=== PATIENT | female | born 1960 | race Caucasian/White ===

== ENCOUNTER → 2020-11-16 15:22 | Outpatient (BNVA) | payer BC, SELFPAY | PROVIDERS: Family Provider Family Medicine; Visit Provider Obstetrics & Gynecology | DX: N95.1 Menopausal and female climacteric states (principal); R93.89 Abnormal findings on diagnostic imaging of other specified body structures | CPT/HCPCS: 76830 ==

== ENCOUNTER → 2020-11-23 09:50 | Outpatient (BNVA) | payer BC, SELFPAY | PROVIDERS: Family Provider Family Medicine; Visit Provider Obstetrics & Gynecology | DX: Z12.4 Encounter for screening for malignant neoplasm of cervix (principal) | CPT/HCPCS: 88175 ==

== ENCOUNTER 2020-12-28 11:19 | Outpatient (CLI) | payer BC, SELFPAY ==
--- NOTE | 2020-12-28 10:50 | MM_ITS ---
WS: [id number] BILATERAL DIGITAL SCREENING MAMMOGRAPHY WITH CAD CLINICAL INFORMATION: SCREENING HISTORY: Screening mammogram. No current complaints. COMPARISON: TECHNIQUE: Bilateral CC and MLO views. FINDINGS: Bilateral breast implants. Implants are mammographically intact with capsular calcification s. The breasts are composed of heterogeneous fibroglandular density tissue, which can limit the detectio n of small underlying mass lesions. Nodular breast tissue upper outer right breast unchanged. No susp icious mass, asymmetry, calcifications, or architectural distortion. No evidence of malignancy. MM/[place] [id number] IMPRESSION: BI-RADS: 2-Benign FOLLOW UP: 1 Year Follow-up Recommend return to annual screening mammography.
== END 2020-12-28 11:20 | disposition home or self-care (01) ==
LOC: RADSHAW 11:21
PROVIDERS: PCP Nurse Practitioner Family; Visit Provider Obstetrics & Gynecology
DX: Z12.31 Encounter for screening mammogram for malignant neoplasm of breast (principal)
CPT/HCPCS: 77067

== ENCOUNTER → 2021-05-10 09:03 | Outpatient (BNVA) | payer BC, SELFPAY | PROVIDERS: PCP Nurse Practitioner Family; Visit Provider Internal Medicine | DX: E03.9 Hypothyroidism, unspecified (principal); Z86.39 Personal history of other endocrine, nutritional and metabolic disease; Z87.891 Personal history of nicotine dependence | CPT/HCPCS: 99204 ==

== ENCOUNTER 2021-05-10 10:26 | Outpatient (CLI) | payer BC, SELFPAY ==
[2021-05-10 11:39] LABS: Free T4 Free Thyroxine 1.31 ng/dL (0.82-1.77); Thyroid Stimulating Hormone 0.58 uIU/mL (0.27-4.20)
== END 2021-05-10 10:27 | disposition home or self-care (01) ==
LOC: LAB 10:29
PROVIDERS: PCP Nurse Practitioner Family; Visit Provider Internal Medicine
DX: E03.9 Hypothyroidism, unspecified (principal)
CPT/HCPCS: 36415; 84439; 84443

== ENCOUNTER → 2021-12-22 08:08 | Outpatient (BNVA) | payer BC, SELFPAY | PROVIDERS: PCP Nurse Practitioner Family; Visit Provider Obstetrics & Gynecology | DX: Z00.00 Encounter for general adult medical examination without abnormal findings (principal) | CPT/HCPCS: 80061; 83036 ==

== ENCOUNTER 2022-01-03 08:51 | Outpatient (CLI) | payer BC, SELFPAY ==
--- NOTE | 2022-01-03 08:58 | MM_ITS ---
WS: [id number] BILATERAL SCREENING DIGITAL BREAST MAMMOGRAPHY WITH DEMETRIUS DISPLACEMENT VIEWS. CAD PERFORMED. HISTORY: SCREEN COMPARISON: 12/28/2020, 02/26/2018 Bilateral craniocaudal and mediolateral oblique views are performed with tomosynthesis and SM. Demetrius displacement views in CC and MLO projection also performed. Breasts composition: The breasts are heterogeneously dense, which may obscure small masses. Prepecto ral implants with heavy capsular contraction and calcification. No extravasation or interval change. Dense nodules in the upper-outer quadrant of the RIGHT breast may be from a prior capsular leak. Dens e fibroglandular tissue in the upper outer quadrant of the RIGHT breast. No suspicious mass. MM/[place] [id number] IMPRESSION: BI-RADS: 2-Benign FOLLOW-UP: 1 Year Follow-up
== END 2022-01-03 08:52 | disposition home or self-care (01) ==
PROVIDERS: Visit Provider Obstetrics & Gynecology
DX: Z12.31 Encounter for screening mammogram for malignant neoplasm of breast (principal)
CPT/HCPCS: 77063; 77067

== ENCOUNTER 2022-07-28 10:23 | Outpatient (CLI) | payer BC, SELFPAY ==
[2022-07-28 12:32] LABS: Free T4 Free Thyroxine 1.39 ng/dL (0.82-1.77)
== END 2022-07-28 10:24 | disposition home or self-care (01) ==
LOC: LAB 10:29
PROVIDERS: Visit Provider Internal Medicine
DX: E03.9 Hypothyroidism, unspecified (principal)
CPT/HCPCS: 36415; 84439

== ENCOUNTER 2023-02-20 10:07 | Outpatient (CLI) | payer BC, SELFPAY ==
--- NOTE | 2023-02-20 10:51 | MM_ITS ---
WS: [id number] BILATERAL SCREENING DIGITAL BREAST MAMMOGRAPHY WITH DEMETRIUS DISPLACEMENT VIEWS. CAD PERFORMED. HISTORY: Z12.31 - Encounter for screening mammogram for malignant ... COMPARISON: 01/03/2022, 12/28/2020 Bilateral craniocaudal and mediolateral oblique views are performed with tomosynthesis and SM. Demetrius displacement views in CC and MLO projection also performed. Breasts composition: The breasts are heterogeneously dense, which may obscure small masses. Implants are slightly contracted with diffuse capsular contraction. Nodules and asymmetries within each breas t are stable over multiple prior years. MM/[place] [id number] IMPRESSION: BI-RADS: 2-Benign FOLLOW-UP: 1 Year Follow-up
== END 2023-02-20 10:08 | disposition home or self-care (01) ==
LOC: RAD 10:10 → MOBLMAM 10:14 → RAD 10:25
PROVIDERS: PCP Nurse Practitioner; Visit Provider Nurse Practitioner Women's Health
DX: Z12.31 Encounter for screening mammogram for malignant neoplasm of breast (principal)
CPT/HCPCS: 77063; 77067

== ENCOUNTER 2024-02-22 12:57 | Outpatient (CLI) | payer BC, SELFPAY ==
--- NOTE | 2024-02-22 13:00 | XR_ITS ---
WS: [id number] DEXA (DUAL ENERGY X-RAY ABSORPTIOMETRY) Bone mineral density was performed using a [employer] machine. HISTORY: Z78.0 - Asymptomatic menopausal state COMPARISON: None available. Lumbar spine BMD (L1-L4): 1.369 g/cm2 T score: 1.6 Z score: 2.8 Total hip BMD: Left: 1.124 g/cm2. T score: 0.9 Z score: 1.9 Right: 1.069 g/cm2. T score: 0.5 Z score: 1.5 10 year probability of a major osteoporotic fracture is 6.0%. XR/XR DEXA axial skeleton* [id number] IMPRESSION: NORMAL BONE MINERAL DENSITY based upon the WHO classification for females.
--- NOTE | 2024-02-22 13:30 | MM_ITS ---
WS: [id number] BILATERAL SCREENING DIGITAL BREAST MAMMOGRAPHY WITH DEMETRIUS DISPLACEMENT VIEWS. CAD PERFORMED. HISTORY: Z12.31 - Encounter for screening mammogram for malignant ... COMPARISON: 02/20/2023 Bilateral craniocaudal and mediolateral oblique views are performed with tomosynthesis and SM. Demetrius displacement views in CC and MLO projection also performed. Breasts composition: The breasts are heterogeneously dense, which may obscure small masses. Bilatera l scattered asymmetries within each breast have been present on prior studies. There is extensive cap sular contraction around the implants. No suspicious masses or interval progression of the asymmetrie s. MM/[place] [id number] IMPRESSION: BI-RADS: 2-Benign FOLLOW-UP: 1 Year Follow-up
== END 2024-02-22 12:58 | disposition home or self-care (01) ==
LOC: RAD 12:59
PROVIDERS: PCP Nurse Practitioner; Visit Provider Nurse Practitioner Women's Health
DX: Z12.31 Encounter for screening mammogram for malignant neoplasm of breast (principal); Z78.0 Asymptomatic menopausal state; Z13.820 Encounter for screening for osteoporosis
CPT/HCPCS: 77063; 77067; 77080

== ENCOUNTER → 2025-01-30 09:39 | Outpatient (BNVA) | payer BC, MEDICARE, SELFPAY | PROVIDERS: PCP Nurse Practitioner; Visit Provider Nurse Practitioner Women's Health | DX: Z01.419 Encounter for gynecological examination (general) (routine) without abnormal findings (principal) | CPT/HCPCS: 87624 ==

== ENCOUNTER 2025-03-03 10:15 | Outpatient (CLI) | payer BC, MEDICARE, SELFPAY ==
--- NOTE | 2025-03-03 10:40 | MM_ITS ---
WS: [id number] Bilateral screening 3D tomosynthesis digital mammogram, 03/03/2025 10:40 AM Clinical Data: Z12.31 - Encounter for screening mammogram for malignant ... Comparison: 02/20/2023, 12/28/2020, 02/26/2018, 02/25/2018, 07/24/2017. Findings: No spiculated masses or clustered calcifications are seen. There are no secondary signs of carcinoma. There is extracapsular silicone noted in the right breast. The implants appear intact. MM/MM [facility] tomosynthesis [id number] Impression: Negative bilateral mammogram unchanged. Recommend annual screening mammograms. BIRADS: 2 - Benign FOLLOW UP: 1 Year Follow-up DENSITY: The breasts are heterogeneously dense, which may obscure small masses. The CAD bingo checker was used
== END 2025-03-03 10:16 | disposition home or self-care (01) ==
LOC: RAD 10:16
PROVIDERS: PCP Nurse Practitioner; Visit Provider Nurse Practitioner Women's Health
DX: Z12.31 Encounter for screening mammogram for malignant neoplasm of breast (principal); Z98.82 Breast implant status
CPT/HCPCS: 77063; 77067